=== PATIENT | female | born 1975 | race African-American/Black ===

== ENCOUNTER 2017-10-27 22:45 | Emergency (ER) ==
[2017-10-27 23:00] VITALS: BP 146/79; TEMP 98.6
--- NOTE | 2017-10-27 23:31 | ED.PDOC ---
General ED Provider: Dr. FRIDA KERNS-ER Chief Complaint: Foot Pain/Injury Stated Complaint: mariangel got a heel spur Time Seen by Physician: 23:28 Mode of Arrival: Walk-In Information Source: Patient Exam Limitations: No limitations Nursing and Triage Documentation Reviewed and Agree: Yes Does patient meet sepsis criteria?: No System Inflammatory Response Syndrome: Not Applicable Sepsis Protocol: For patient's 13 years and over: Temp is 96.8 and below OR 101 and greater Pulse >90 BPM Resp >20/minute Acutely Altered Mental Status Are patient's symptoms suggestive of a new infection, such as: -Pneumonia -Skin, Soft Tissue -Endocarditis -UTI -Bone, Joint Infection -Implantable Device -Acute Abdominal Infection -Wound Infection -Meningitis -Blood Stream Catheter Infection -Unknown Musculoskeletal Complaint Exam - Ankle/Foot Complaint/Exam Location of Injury: Reports: Left, Foot Mechanism of Injury: Reports: No known trauma Onset/Duration: several days Symptoms Are: Reports: Still present Onset of Pain: Reports: Immediate Initial Severity: Mild Current Severity: Mild Location: Reports: Discrete Alleviating: Reports: None Aggravating: Reports: Weight bearing, Prolonged standing Able to Bear Weight: No Associated Signs and Symptoms: Denies: Swelling, Redness, Bruising, Fever, Weakness, Numbness, Tingling Lower Extremity Findings: Present: Tenderness Achilles Tendon Abnormality: No Tenderness: Present: Heel Differential Diagnosis: Sprain, Strain Review of Systems - Review Of Systems Constitutional: Reports: No symptoms Eyes: Reports: No symptoms Ears, Nose, Mouth, Throat: Reports: No symptoms Respiratory: Reports: No symptoms Cardiac: Reports: No symptoms GI: Reports: No symptoms : Reports: No symptoms Musculoskeletal: Reports: Muscle pain Skin: Reports: No symptoms Neurological: Reports: No symptoms Endocrine: Reports: No symptoms Hematologic/Lymphatic: Reports: No symptoms All Other Systems: Reviewed and Negative Past Medical History - Past Medical History Previously Healthy: No Endocrine: Reports: Unknown Cardiovascular: Reports: Unknown Respiratory: Reports: Unknown Hematological: Reports: Unknown Gastrointestinal: Reports: Unknown Genitourinary: Reports: Unknown Neuro/Psych: Reports: Unknown Musculoskeletal: Reports: Unknown Cancer: Reports: Unknown Last Menstrual Period: 2 weeks ago - Surgical History General Surgical History: Reports: Unknown - Family History Family History: Reports: Unknown - Social History Smoking Status: Current some day smoker, Light tobacco smoker Hx Substance Use: No Alcohol Screening: Occasionally - Immunizations Tetanus Shot up to Date: Yes Physical Exam - Physical Exam Appearance: Well-appearing, No pain distress, Well-nourished Pain Distress: Mild Eyes: STANLEY, EOMI, Conjunctiva clear ENT: Ears normal, Nose normal, Oropharynx normal Neck: Supple Respiratory: Airway patent Cardiovascular: RRR, Pulses normal, No rub, No murmur GI/: Soft Musculoskeletal: Normal strength, ROM intact, No edema, No calf tenderness Skin: Warm, Dry, Normal color Neurological: Sensation intact, Motor intact, Reflexes intact, Cranial nerves intact, Alert, Oriented Psychiatric: Affect appropriate, Mood appropriate Critical Care Note - Critical Care Note Total Time (mins): 0 Course - Course Orders, Labs, Meds: Orders Category Date Time Status FOOT, LEFT 3 VIEWS Stat RADS 10/27/17 23:12 Taken FOOT, RIGHT 3 VIEWS Stat RADS 10/27/17 23:12 Taken Vital Signs: Temp Pulse Resp BP Pulse Ox 10/27/17 22:54 98.6 F 87 20 146/79 H 97 Departure - Departure Time of Disposition: 23:31 Disposition: HOME SELF-CARE Discharge Problem: Plantar fasciitis Heel spur Qualifiers: Laterality: right Qualified Code(s): M77.31 - Calcaneal spur, right foot Instructions: Heel Spur (ED) Condition: Good Pt referred to PMD for follow-up: Yes IPMP verified?: No Additional Instructions: use heel cup and arch supports--consider seeing podiatry if not feeling better Allergies/Adverse Reactions: Allergies No Known Allergies Allergy (Unverified 10/27/17 23:01) Home Medications: Ambulatory Orders Cyclobenzaprine HCl [Flexeril] 10 mg PO TID 10/27/17 Hydroxyzine Pamoate [Vistaril] 50 mg PO TID 10/27/17 Naproxen [Naprosyn] 500 mg PO BID 10/27/17 Valacyclovir HCl [Valtrex] 500 mg PO DAILY 10/27/17 Venlafaxine HCl [Effexor] 75 mg PO DAILY 10/27/17 Disposition Discussed With: Patient
--- NOTE | 2017-10-27 23:46 | DI ---
EXAM: Right foot, three views, 10/27/2017 HISTORY: Foot pain COMPARISON: None. FINDINGS / IMPRESSION: The visualized osseous structures appear intact. Anatomic alignment appears within normal limits. There is no evidence of fracture or dislocation. Mild osteoarthritic degenerative change. Small calc aneal spur. No acute osseous abnormality.
--- NOTE | 2017-10-27 23:47 | DI ---
EXAM: Left foot, three views, 10/27/2017 HISTORY: Foot pain COMPARISON: None. FINDINGS / IMPRESSION: The visualized osseous structures appear intact. Anatomic alignment appears within normal limits. There is no evidence of fracture or dislocation. Mild chronic osteoarthritic degenerative change. Sm all calcaneal spur. No acute osseous abnormality.
== END 2017-10-27 23:45 | disposition home or self-care (01) ==
LOC: ED 22:45
DX: M77.32 Calcaneal spur, left foot (principal); M77.31 Calcaneal spur, right foot; M72.2 Plantar fascial fibromatosis; F17.210 Nicotine dependence, cigarettes, uncomplicated
CPT/HCPCS: 99283